=== PATIENT | female | born 1960 | race Hispanic/Latino ===

== ENCOUNTER 2021-02-05 15:41 | Outpatient (CLI) | payer SELFPAY ==
--- NOTE | ~2021-02-05 | XR_ITS ---
EXAMINATION: XR chest 2V DATE: 02/05/2021 16:43 INDICATION: Wheezing and bronchitis TECHNIQUE: PA and lateral views of the chest are obtained. COMPARISON: None available FINDINGS: There is linear opacity in the right middle lobe. The lungs are otherwise free of acute opa cities. There is no pleural effusion or pneumothorax. The cardiomediastinal silhouette is normal. The re is mild thoracic spondylosis. IMPRESSION: 1. Subsegmental atelectasis of the right middle lobe. Reviewed, dictated and finalized at location A.
== END 2021-02-05 15:42 | disposition home or self-care (01) ==
PROVIDERS: PCP Emergency Medicine; Visit Provider Emergency Medicine
DX: R06.2 Wheezing (principal); R91.8 Other nonspecific abnormal finding of lung field
CPT/HCPCS: 71046